=== PATIENT | female | born 1960 | race Caucasian/White ===

== ENCOUNTER 2022-12-07 08:56 | Emergency (ER) | payer BC ==
[~2022-12-07] VITALS: Ht 170.2 cm; Wt 83.2 kg
[~2022-12-07 08:56] MED LIST: CEFTIN 250250 MG/TAB PO; NEXIUM 20MG20 MG PO; NO HOME MEDICATIONS
[2022-12-07 09:02] VITALS: TEMP 97.9
[2022-12-07] MEDS ORDERED: FLEXERIL5 MG PO (11:05)
[2022-12-07] MEDS ORDERED: INDOCIN 25MG CA25 MG PO (11:05)
[2022-12-07 11:25] VITALS: BP 134/90; PULSE 66
[2022-12-07] MEDS ORDERED: ROXICODONE 55 MG/TAB PO (12:38)
== END 2022-12-07 11:26 | disposition home or self-care (01) ==
LOC: COL.ER 08:56 → EDBD 08:59 → COL.ER 11:26
DX: M54.17 Radiculopathy, lumbosacral region (principal); K59.89 Other specified functional intestinal disorders; Z28.311 Partially vaccinated for COVID-19
CPT/HCPCS: J1885; J3010